=== PATIENT | male | born 1990 | race Caucasian/White ===

== ENCOUNTER 2017-10-04 13:42 | Emergency (ER) | payer MEDICAID ==
[~2017-10-04] VITALS: Ht 198.1 cm; Wt 103.1 kg
[2017-10-04 14:00] VITALS: BP 141/92
[2017-10-04 15:21] LABS: ALBUMIN 3.8 g/dL (3.4-5.0); ANION GAP 9 mmol/L (5-15); CALCIUM 8.9 mg/dL (8.5-10.1); CHLORIDE 103 mmol/L (98-107); CREATININE 0.92 mg/dL (0.7-1.3)
== END 2017-10-04 16:01 | disposition home or self-care (01) ==
LOC: ED 15:55
DX: L03.114 Cellulitis of left upper limb (principal); F11.10 Opioid abuse, uncomplicated; F10.10 Alcohol abuse, uncomplicated; F15.10 Other stimulant abuse, uncomplicated; F41.9 Anxiety disorder, unspecified
CPT/HCPCS: 36415; 80048; 82040; 93005; 99285

== ENCOUNTER 2017-10-06 23:10 | Emergency (ER) | payer MEDICAID ==
[~2017-10-06] VITALS: Ht 198.1 cm; Wt 105.9 kg
[2017-10-07 00:13] LABS: BASOPHILS # (AUTO) 0.07 x10^3/uL (0-0.1); BASOPHILS % (AUTO) 1 % (0-1); EOSINOPHILS # (AUTO) 0.94 x10^3/uL (0-0.4); EOSINOPHILS % (AUTO) 11 % (1-7); LYMPHOCYTES # (AUTO) 3.07 x10^3/uL (1-3.4); LYMPHOCYTES % (AUTO) 35 % (22-44); MD NO; MEAN CORPUSCULAR HEMOGLOBIN 32.5 pg (27.5-34.5); MEAN CORPUSCULAR HGB CONC 33.7 g/dL (33.2-36.2); MEAN CORPUSCULAR VOLUME 96.2 fL (81-97); MEAN PLATELET VOLUME 7.7 fL (7.4-10.4); MONOCYTES # (AUTO) 0.62 x10^3/uL (0.2-0.8); MONOCYTES % (AUTO) 7 % (2-9); NEUTROPHILS # (AUTO) 4.17 x10^3/uL (1.8-6.8); NEUTROPHILS % (AUTO) 47 % (42-75); PLATELET COUNT 298 x10^3/uL (130-400); RED BLOOD COUNT 4.37 x10^6/uL (4.38-5.82); RED CELL DISTRIBUTION WIDTH 12.8 % (9.4-14.8)
[2017-10-07 00:22] LABS: ANION GAP 9 mmol/L (5-15); CALCIUM 8.4 mg/dL (8.5-10.1); CHLORIDE 109 mmol/L (98-107); CREATININE 1.05 mg/dL (0.7-1.3)
[2017-10-07] MEDS ORDERED: CEPH-368 PO (00:38)
[2017-10-07] MEDS ORDERED: CHLORDIAZEPOXIDE 25 MG CAPSULE ONE (01:16)
[2017-10-07] MEDS ORDERED: CLINDAMYCIN 150 MG CAPSULE ONE (01:16)
[2017-10-07] MEDS ORDERED: CLINDAMYCIN 150 MG CAPSULE PO ONE (01:30)
[2017-10-07] MEDS ORDERED: CHLORDIAZEPOXIDE 25 MG CAPSULE PO PRN (01:30)
[2017-10-07 02:10] VITALS: BP 106/68
== END 2017-10-07 02:12 | disposition home or self-care (01) ==
LOC: ED 23:59
DX: L03.114 Cellulitis of left upper limb (principal); F10.239 Alcohol dependence with withdrawal, unspecified
CPT/HCPCS: 36415; 80048; 85025; 93005; 99285

== ENCOUNTER 2018-05-28 05:04 | Emergency (ER) | payer MEDICAID ==
[~2018-05-28] VITALS: Ht 195.6 cm; Wt 116.7 kg
[~2018-05-28 05:04] MED LIST: CEPH-368 PO
[2018-05-28 05:07] VITALS: BP 139/90
[2018-05-28] MEDS ORDERED: PROMETHAZINE/COD. 10MG/6.25MG/5 ML ORAL SOL PO ONE (05:30)
== END 2018-05-28 06:23 | disposition home or self-care (01) ==
LOC: ED 06:15
DX: J20.8 Acute bronchitis due to other specified organisms (principal); B97.89 Other viral agents as the cause of diseases classified elsewhere
CPT/HCPCS: 71045; 99283

== ENCOUNTER 2018-10-28 19:21 | Inpatient (IN) | payer MEDICAID ==
[~2018-10-28] VITALS: Ht 198.1 cm; Wt 108.5 kg
[~2018-10-28 19:21] MED LIST changes: +BUPR-86 PO
--- NOTE | 2018-10-28 19:39 | NUR ---
PT AMBULATES TO ROOM FROM TRIAGE WITH STEADY GAIT. PT INSTRUCTED TO TAKE OFF ALL CLOTHES AND PERSONAL BELONGINGS AT THIS TIME. PT IS UNDER OBSERVATION OF NON PROFIT JOB TITLES OF [facility] WHO IS WITH PT AT THIS TIME. PT IS TEARFUL IN ROOM.
--- NOTE | 2018-10-28 19:44 | NUR ---
PT STATES THAT HE IS FEELING DEPRESSED AND WANTS TO JUMP OFF OF [employer]. PT REPORTS DRINKING 10 GALLONS OF VODKA THIS WEEK, WITH SEVERAL DRINKS TODAY. PT ALSO ADMITS TO IV METHAMPHETAMINE USE TODAY. PT IN GOWN IN [facility] AT THIS TIME; ALL BELONGINGS BAGGED INTO 1 OF 1 BAG AND LOCKED IN LOCKED STORAGE. PT ROOM IS SECURED FOR PT AND STAFF SAFETY. PT EDUCATED ON ER PROCESS AND VERBALIZES UNDERSTANDING. AWAITING ERP AND NEW ORDERS AT THIS TIME. LAB IS AT BS WITH PT.
[2018-10-28 19:57] LABS: ALBUMIN 4.2 g/dL (3.4-5.0); ANION GAP 10 mmol/L (5-15); CALCIUM 9.1 mg/dL (8.5-10.1); CHLORIDE 109 mmol/L (98-107); CREATININE 1.07 mg/dL (0.7-1.3); SALICYLATE LEVEL 2.3 mg/dL (2.8-20.0)
[2018-10-28 20:01] LABS: ACETAMINOPHEN < 2 mcg/mL (10-30)
[2018-10-28 20:03] LABS: BASOPHILS # (AUTO) 0.05 x10^3/uL (0-0.1); BASOPHILS % (AUTO) 1 % (0-1); EOSINOPHILS # (AUTO) 0.76 x10^3/uL (0-0.4); EOSINOPHILS % (AUTO) 8 % (1-7); LYMPHOCYTES # (AUTO) 3.48 x10^3/uL (1-3.4); LYMPHOCYTES % (AUTO) 37 % (22-44); MD NO; MEAN CORPUSCULAR HEMOGLOBIN 33.3 pg (27.5-34.5); MEAN CORPUSCULAR HGB CONC 34.5 g/dL (33.2-36.2); MEAN CORPUSCULAR VOLUME 96.5 fL (81-97); MEAN PLATELET VOLUME 7.4 fL (7.4-10.4); MONOCYTES # (AUTO) 0.71 x10^3/uL (0.2-0.8); MONOCYTES % (AUTO) 8 % (2-9); NEUTROPHILS # (AUTO) 4.41 x10^3/uL (1.8-6.8); NEUTROPHILS % (AUTO) 47 % (42-75); PLATELET COUNT 403 x10^3/uL (130-400); RED BLOOD COUNT 5.31 x10^6/uL (4.38-5.82); RED CELL DISTRIBUTION WIDTH 13.4 % (9.4-14.8)
--- NOTE | 2018-10-28 20:53 | NUR ---
called for [facility] assessment
--- NOTE | 2018-10-28 21:07 | NUR ---
PT RESTING COMFORTABLY IN [facility] AT THIS TIME; NADN. URINE SAMPLE PROVIDED BY PATIENT.
[2018-10-28] MEDS ORDERED: NICOTINE 21 MG/24 HR PATCH.TD24 TD SCH (21:30)
[2018-10-28] MEDS ORDERED: BISACODYL 10 MG SUPP PR PRN (21:30)
[2018-10-28] MEDS ORDERED: DIPHENHYDRAMINE 50 MG CAPSULE PO PRN (21:30)
[2018-10-28] MEDS ORDERED: POLYETHYLENE GLYCOL 17 GM PACKET PO PRN (21:30)
[2018-10-28] MEDS ORDERED: ONDANSETRON ODT 4 MG PO PRN (21:30)
[2018-10-28] MEDS ORDERED: ACETAMINOPHEN 325 MG TABLET PO PRN (21:30)
[2018-10-28] MEDS ORDERED: HALOPERIDOL 5 MG TABLET PO PRN (21:30)
[2018-10-28 21:37] LABS: AMPHETAMINE SCREEN, URINE Positive (Negative); BARBITURATE SCREEN, URINE Negative (Negative); BENZODIAZEPINE SCREEN, URINE Positive (Negative); CANNABINOID SCREEN, URINE Positive (Negative); COCAINE SCREEN, URINE Negative (Negative); METHADONE SCREEN, URINE Negative (Negative); OPIATE SCREEN, URINE Negative (Negative)
--- NOTE | 2018-10-28 21:56 | NUR ---
packet faxed to [facility]
[2018-10-28] MEDS ORDERED: DIPHENHYDRAMINE 50 MG CAPSULE ONE (22:19)
--- NOTE | 2018-10-28 22:30 | NUR ---
PT PROVIDED TISSUES PER REQUEST. PT RESTING COMFORTABLY IN [facility] AT THIS TIME; NADN. SITTER OUTSIDE OF ROOM FOR DIRECT PATIENT OBSERVATION. PT MEDICATED PER AUG.
[2018-10-28] MEDS ORDERED: NICOTINE 21 MG/24 HR PATCH.TD24 ONE (22:59)
--- NOTE | 2018-10-29 00:52 | NUR ---
REPORT OF PT TO DORIS ALVES. ALL QUESTIONS ANSWERED. PT FRIEND PA GOMEZ NOTIFIED OF PT ROOM ASSIGNMENT. [phone]
[2018-10-29 00:59] VITALS: BP 124/86
[2018-10-29] MEDS ORDERED: SENNA/DOCUSATE TABLET PO SCH (09:00)
== END 2018-10-29 04:00 | DRG 885 ==
LOC: ED 19:39 → EDIP 20:57 → 2N 10-29 00:55
PROVIDERS: ADMIT Internal Medicine; ATTEND Internal Medicine
DX: F20.0 Paranoid schizophrenia (principal); R45.851 Suicidal ideations; F10.10 Alcohol abuse, uncomplicated; Y90.9 Presence of alcohol in blood, level not specified; F12.90 Cannabis use, unspecified, uncomplicated; F15.10 Other stimulant abuse, uncomplicated; F17.210 Nicotine dependence, cigarettes, uncomplicated; F31.9 Bipolar disorder, unspecified; F41.1 Generalized anxiety disorder; F43.10 Post-traumatic stress disorder, unspecified; R00.0 Tachycardia, unspecified; Z79.899 Other long term (current) drug therapy; Z81.8 Family history of other mental and behavioral disorders
CPT/HCPCS: 36415; 80048; 80074; 80307; 80329; 82040; 85025; 87806; 99285; G0475; G0480